=== PATIENT | male | born 1940 | race African-American/Black ===

== ENCOUNTER 2017-01-25 15:21 | Emergency (ER) | payer OTHER, MEDICAID ==
[~2017-01-25] VITALS: Ht 182.9 cm; Wt 116.1 kg
[2017-01-25] MEDS ORDERED: NKM (15:46)
--- NOTE | 2017-01-25 16:46 | Diagnostic Imaging Report ---
Indication: Dizziness Technique: Contiguous 5 mm thick transaxial imaging of the head obtained in a Siemens Sensation [address] scanner. Soft tissue and bone windows generated. Total Dose length Product (DLP): [address] Dose Index Volume (CTDIvol): 70.38 mGy Comparison: none Findings: There is mild prominence of the ventricles, basal cisterns, and cerebral sulci consistent with atrophy. Mild, nonspecific, white matter hypoattenuation is noted throughout the brain consistent with chronic small vessel disease. There is no midline shift, edema, acute hemorrhage, mass effect, or abnormal extra-axial fluid collections. Bones and extra osseous soft tissues are unremarkable. Impression: No acute intracranial bleed, mass effect or edema. Mild atrophy of the brain. Nonspecific white matter hypoattenuation probably due to chronic small vessel disease. The CT scanner at [facility] is accredited by the [employer] and the scans are performed using protocols designed to limit radiation exposure to as low as reasonably achievable to attain images of sufficient resolution adequate for diagnostic evaluation.
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
[2017-01-25] MEDS ORDERED: TYLENOL EXTRA500 MG ORAL (17:43)
[2017-01-25 17:59] VITALS: BP 198/88
== END 2017-01-25 18:05 | disposition home or self-care (01) ==
LOC: EDBD 16:00 → EMR 16:00
DX: S00.93XA Contusion of unspecified part of head, initial encounter (principal); V43.52XA Car driver injured in collision with other type car in traffic accident, initial encounter; Y92.410 Unspecified street and highway as the place of occurrence of the external cause; Z85.46 Personal history of malignant neoplasm of prostate; R51 Headache; G31.9 Degenerative disease of nervous system, unspecified
CPT/HCPCS: 70450; 99284

== ENCOUNTER 2018-12-14 16:33 | Emergency (ER) | payer OTHER, MEDICAID ==
[~2018-12-14] VITALS: Ht 182.9 cm; Wt 108.0 kg
[~2018-12-14 16:33] MED LIST: NKM; TYLENOL EXTRA500 MG ORAL
--- NOTE | 2018-12-14 16:57 | NUR ---
ED Nurse Note: patient came in c/o high blood pressure, patient has not been taking blood pressure medication because on the tv says such medication can cause kidney injury. at bedside. patient is ambulatory, came in from home, due to headache, that is intermittent.
[2018-12-14 17:58] VITALS: BP 159/86
[2018-12-14 18:47] LABS: ANION GAP 9 mmol/L (5-15); BLOOD UREA NITROGEN 8 mg/dL (7-18); CALCIUM 8.9 MG/DL (8.5-10.1); CARBON DIOXIDE 28 MMOL/L (21-32); CHLORIDE 102 MMOL/L (98-107); POTASSIUM 3.6 MMOL/L (3.5-5.1); SODIUM 139 MMOL/L (136-145)
--- NOTE | 2018-12-14 18:49 | Emergency Room Report ---
History of Present Illness General Chief Complaint: Hypertension Source: Patient Present Illness HPI Patient presents with high blood pressure. He states that he had an episode of headache. He states he stopped taking his 3 blood pressure medications about a month ago due to some TV commercial saying that it hasn't benefits on his kidney. He denies any other associated symptoms. Denies any chest pain or shortness of breath. Denies any headache currently. He is a symptomatically. Allergies: Coded Allergies: No Known Allergies (Unverified , 01/25/17) Patient History Past Medical History: HTN Pertinent Family History: HTN Nursing Documentation-[facility] Past Medical History: No History, Except For Hx Cardiac Problems: Yes Hx Hypertension: Yes Hx Pacemaker: No Hx Asthma: No Hx COPD: No Hx Diabetes: No Hx Cancer: Yes - Prostate CA Hx Gastrointestinal Problems: No Hx Dialysis: No Hx Neurological Problems: No Hx Cerebrovascular Accident: No Hx Seizures: No Review of Systems All Other Systems: negative except mentioned in HPI Physical Exam Vital Signs Date Time Temp Pulse Resp B/P (MAP) Pulse Ox O2 Delivery O2 Flow Rate FiO2 12/14/18 16:47 98.4 72 16 198/94 94 Room Air General Appearance: well appearing, no apparent distress Head: normocephalic, atraumatic ENT: hearing grossly normal, normal voice Neck: full range of motion, supple Respiratory: no respiratory distress, speaking full sentences Gastrointestinal: normal inspection Musculoskeletal: normal inspection, gait/station normal, no calf tenderness Neurologic: alert, normal gait Psychiatric: mood/affect normal Skin: no rash Medical Decision Making Diagnostic Impression: Primary Impression: Hypertension ER Course no evidence of end organ damage. long discussion with With patient regarding compliance with medication. The patient has no chest pain or headache at this time. No evidence of stroke symptoms. The patient will be restarted on his medications. He does have his medications. Laboratory Tests Test 12/14/18 17:50 Sodium Level 139 MMOL/L (136-145) Potassium Level 3.6 MMOL/L (3.5-5.1) Chloride Level 102 MMOL/L (98-107) Carbon Dioxide Level 28 MMOL/L (21-32) Anion Gap 9 mmol/L (5-15) Blood Urea Nitrogen 8 mg/dL (7-18) Creatinine 1.0 MG/DL (0.55-1.30) Estimate Glomerular Filtration Rate mL/min (>60) Glucose Level 157 MG/DL (74-106) H Calcium Level 8.9 MG/DL (8.5-10.1) Total Bilirubin 0.5 MG/DL (0.2-1.0) Aspartate Amino Transferase (AST) 16 U/L (15-37) Alanine Aminotransferase (ALT) 26 U/L (12-78) Alkaline Phosphatase 57 U/L (46-116) Total Protein 7.5 G/DL (6.4-8.2) Albumin 3.8 G/DL (3.4-5.0) Globulin 3.7 g/dL Albumin/Globulin Ratio 1.0 (1.0-2.7) Last Vital Signs Date Time Temp Pulse Resp B/P (MAP) Pulse Ox O2 Delivery O2 Flow Rate FiO2 12/14/18 17:58 72 16 Room Air 12/14/18 17:58 98.2 159/86 94 Disposition: HOME, SELF-CARE Referrals: Simona Camara MD (PCP) Patient Instructions: Hypertension MARTIN RUBIO Dec 14, 2018 18:49
[2018-12-14 18:52] LABS: ALANINE AMINOTRANSFERASE 26 U/L (12-78); ALBUMIN 3.8 G/DL (3.4-5.0); ALKALINE PHOSPHATASE 57 U/L (46-116); ASPARTATE AMINO TRANSFERASE 16 U/L (15-37); BILIRUBIN,TOTAL 0.5 MG/DL (0.2-1.0)
--- NOTE | 2018-12-14 19:17 | NUR ---
HAND-OFF: Report given to Rosa Qiu RN.
[2018-12-14 19:25] VITALS: BP 150/82
--- NOTE | 2018-12-14 19:25 | NUR ---
ER Nurse Note: Pt seen, treated, medically cleared by ERMD for discharge. Discharge instructions and prescriptions given with repeat verbalization by pt. Instructed pt to follow up with primary care phyican within one week. Pt a&ox4, VSS, no signs of distress. ID band removed; left with all belongings on steady gait, via own transportation.
== END 2018-12-14 19:25 | disposition home or self-care (01) ==
LOC: EDBD 18:14 → EMR 18:14
DX: I10 Essential (primary) hypertension (principal); R51 Headache; Z91.14 Patient's other noncompliance with medication regimen; Z85.46 Personal history of malignant neoplasm of prostate
CPT/HCPCS: 36415; 80053; 99283